=== PATIENT | female | born 1935 | race Caucasian/White ===

== ENCOUNTER 2019-02-10 14:37 | Inpatient (IN) | payer MEDICARE ==
--- OUTSIDE RECORDS SUMMARY | 2019-02-10 16:48 | XMS REPORT | Continuity of Care Document ---
:1935 External Reference #:[id number] Author Name Elda Carranza Care Team Providers Name Role Phone Herson Wade D.O. Primary Care Physician Unavailable Payers Date Identification Numbers Payment Provider Subscriber Policy Number: [id number] Medicare Blue Ppo Sabrina Smith Group Number: [id number] [address] [address] PayID: [id number] SAMUEL Pardo [id number] Advance Directives Description No Information Available Problems Date Description Provider Status Onset: 07/21/2016 2-part displaced fracture of surgical neck Tato Norman MD Active of left humerus, subsequent encounter for fracture with routine healing Family History Date Family Member(s) Observation Comments General No Current Problems Social History Type Date Description Comments Sex Unknown Lives With Occupation Retired ETOH Use Denies alcohol use Tobacco Use Start: Unknown Patient has never smoked Smoking Status Reviewed: 01/18/19 Patient has never smoked Exercise Type/Frequency active Allergies, Adverse Reactions, Alerts Date Description Reaction Status Severity Comments 02/18/2016 Penicillin Active 02/18/2016 Cephalosporins Active 02/18/2016 Codeine Active 01/25/2017 Myrbetriq nightmares Active Medications Medication Date Status Form Strength Qnty SIG Indications Ordering Provider Shingrix 01/18 Active Suspension 50mcg/0.5 2unit 0.5 Rec ML s milliliters Alise, intramuscula M.D. r times 1, followed by 0.5ml intramuscula r 2-6 months after dose #1 Methotrexate 11/08 Active Solution 50mg/2ML 12uni inject 0.3 ts milliliters Alise, subcutaneous M.D. ly once weekly on tuesdays Folic Acid 11/08 Active Tablets 1mg 90tab take one s capsule/tabl Alise, et daily by M.D. mouth BD 1ML 11/08 Active Misc 27G X 12uni use for Aurelio Tuberculin /10/26" 1 ML ts weekly Alise, Syringe/Safetyg injection of M.D. lide TB Needle methotrexate 27GX1/2" Enbrel 12/10 Active Solution 50mg/ml 11.76 Inject 50 MG M05.79 Aurelio Sureclick 2017 Auto-Inject units Under The Alise, Skin Every M.D. Week Levothyroxine Active Tablets 75mcg 1 by mouth Unknown Sodium /0000 every day Multi For Her Active Tablets 1 tab daily Unknown / Prilosec Active Capsules DR 20mg 1 by mouth Unknown / every day Zofran Active Tablets 4mg 1 tab by Unknown /0000 mouth every 6 hours as needed nausea Pravachol Active Tablets 40mg 1 tablet by Unknown /0000 mouth every night at bedtime Tramadol HCL Active Tablets 50mg 1-2 tablets Unknown /0000 every 6 hours as needed (200 mg in the a.m.) then two tabs prn Calcium 600 + D Active Tablets 600-200mg 1 by mouth Unknown /0000 -Unit twice a day Diclofenac Active Solution 1.5% 150ml apply to Aurelio Sodium / affected Alise, area every 4 M.D. hours daily as needed for pain Triamcinolone Active Ointment 0.5% apply to Unknown Acetonide / ostomy site and fistula as needed. Famciclovir Active Tablets 500mg 1 by mouth Unknown /0000 twice a day Lomotil Active Tablets 2.5-0.025 take 1 Unknown /0000 mg tablet by mouth four times daily as needed maximum daily dose of 4 per day Belsomra Active Tablets 5mg [place], 0000 Herson Cohen D.O. Vesicare Active Tablets 10mg Unknown /0000 Pentoxifylline Active Tablets ER 400mg Unknown ER /0000 Vitamin E Active 1000Units Unknown /0000 Prednisone 11/08 Hx Tablets 2.5mg 180ta Take 3 bs Tablets By Alise, - Mouth Daily M.D. 11/08 For 3 Days Only as Needed For Flare Of Ra (Not Every Day) Prolia 07/19 Hx Solution 60mg/ml 60mg 60 mg sc M81.0 q6mon Alise, - M.D. 09/02 Prednisone 11/26 Hx Tablets 10mg 30tab take 1 day M79.7 s for 5 days Alise, - as needed M.D. 02/21 for flare of ra [place] 03/03 Hx Tablets 5-325mg 45tab 1-2 by mouth S42.222A s every 4 to 6 Yaseen, - hours as 11/26 needed pain Prednisone 02/20 Hx Tablets 10mg 30tab 20 mg on s 02/21, 10mg Yaseen, - on 02/22, then 11/26 resum normal dose on Friday 02/23 Clindamycin HCL 02/20 Hx Capsules 300mg 10cap 2 tabs PO s Qday x 5 Yaseen, - days MD 11/26 Percocet 02/19 Hx Tablets 5-325mg 60tab 1-2 by mouth s every 4 to 6 [place], - hours as M.D. 11/26 needed Fosamax Hx Tablets 70mg one tablet Unknown /0000 weekly - 07/30 Vitamin D Hx Tablets 1000Unit not taking Unknown /0000 as it is in - her Multi 11/23 vitamin Docusate Sodium Hx Capsules 250mg one capsule Unknown /0000 daily as - needed 11/23 Enbrel Hx Soln 25mg/0.5M 6.12m inject 25mg M05.79 Prefill L l sq once Alise, - Syringe weekly. (90 M.D. 12/10 day supply /2016 please) Folic Acid 00 Hx Tablets 1mg 1 by mouth Unknown /0000 every day - 06/01 Vicodin Hx Tablets 5-300mg take 1 by Unknown /0000 mouth every - 6 hours as 11/26 Methotrexate Hx Tablets 2.5mg 6 tbs by Unknown /0000 mouth every - week 11/26 Prednisone Hx Tablets 20mg 40mg daily Unknown /0000 - 04/29 Senna Lax Hx Tablets 8.6mg take 2 Unknown /0000 tablets by - mouth at 11/26 bedtime needed: max 4 tablets by mouth two times a day Prednisone Hx Tablets 2.5mg 180ta take 3 tabs Aurelio /0000 bs by mouth Alise, - every day M.D. 10/07 Tramadol HCL ER Hx Caps ER 200mg 1 capsule at Unknown /0000 24HR bedtime - 04/29 Imodium A-D Hx Capsules 2mg 1 capsule Unknown /0000 after each - loose bm 06/01 Loperamide HCL Hx Tablets take one Unknown /0000 capsule by - mouth every 11/23 6 hours needed Medications Administered in Office Medication Date Status Form Strength Qnty SIG Indications Ordering Provider Prolia Administered Injection Nurse Visit Injection, 018 RH Denosumab, 1MG Prolia Administered Injection Aurelio Injection, 018 Alise, Denosumab, 1MG M.D. Prolia Administered Injection Aurelio Injection, 017 Alise, Denosumab, 1MG M.D. Immunizations Description No Information Available Vital Signs Date Vital Result Comment 01/18/2019 9:32am Height 64 inches 5'4" Weight 111.00 lb Heart Rate 103 /min BP Systolic 126 mmHg BP Diastolic 80 mmHg Pain Level 5 O2 % BldC Oximetry 98 % BMI (Body Mass Index) 19.1 kg/m2 09/29/2018 10:06am Height 64 inches 5'4" Weight 124.44 lb Heart Rate 93 /min BP Systolic Sitting 126 mmHg BP Diastolic Sitting 82 mmHg Pain Level 5 O2 % BldC Oximetry 98 % BMI (Body Mass Index) 21.4 kg/m2 08/31/2018 10:48am Height 64 inches 5'4" Weight 124.00 lb Heart Rate 88 /min BP Systolic Recheck 126 mmHg BP Diastolic Recheck 84 mmHg Respiratory Rate 20 /min Body Temperature 98.9 F BMI (Body Mass Index) 21.3 kg/m2 05/24/2018 11:45am Height 64 inches 5'4" Weight 128.25 lb Heart Rate 77 /min BP Systolic Sitting 114 mmHg BP Diastolic Sitting 80 mmHg Pain Level 6 O2 % BldC Oximetry 92 % BMI (Body Mass Index) 22.0 kg/m2 02/21/2018 2:39pm Height 64 inches 5'4" Weight 133.00 lb Heart Rate 90 /min BP Systolic Sitting 104 mmHg BP Diastolic Sitting 70 mmHg Respiratory Rate 14 /min Pain Level 3 BMI (Body Mass Index) 22.8 kg/m2 11/23/2017 2:43pm Weight 121.00 lb Heart Rate 91 /min BP Systolic Sitting 146 mmHg BP Diastolic Sitting 92 mmHg Respiratory Rate 15 /min Pain Level 6 07/30/2017 10:29am Weight 133.25 lb Heart Rate 81 /min BP Systolic Sitting 150 mmHg BP Diastolic Sitting 98 mmHg O2 % BldC Oximetry 94 % 06/01/2017 4:24pm Height 60 inches 5'0" Weight 129.38 lb Heart Rate 80 /min BP Systolic Sitting 146 mmHg BP Diastolic Sitting 84 mmHg Respiratory Rate 14 /min Pain Level 5 BMI (Body Mass Index) 25.3 kg/m2 04/29/2017 9:01am Height 60 inches 5'0" Weight 130.25 lb Heart Rate 84 /min BP Systolic Sitting 150 mmHg BP Diastolic Sitting 84 mmHg Respiratory Rate 14 /min Pain Level 6 BMI (Body Mass Index) 25.4 kg/m2 01/25/2017 11:42am Height 60 inches 5'0" Heart Rate 96 /min BP Systolic Sitting 148 mmHg BP Diastolic Sitting 96 mmHg Respiratory Rate 16 /min Body Temperature 97.7 F 11/26/2016 9:58am Height 60 inches 5'0" Weight 113.12 lb Heart Rate 78 /min BP Systolic Sitting 138 mmHg BP Diastolic Sitting 80 mmHg Body Temperature 98.4 F O2 % BldC Oximetry 99 % BMI (Body Mass Index) 22.1 kg/m2 07/21/2016 10:10am Height 62.5 inches 5'2.50" Weight 103.00 lb Heart Rate 60 /min Respiratory Rate 16 /min Pain Level 0 BMI (Body Mass Index) 18.5 kg/m2 05/12/2016 11:53am Height 62.5 inches 5'2.50" Weight 103.00 lb Pain Level 0 BMI (Body Mass Index) 18.5 kg/m2 03/19/2016 12:20pm Height 62.5 inches 5'2.50" Weight 103.00 lb Pain Level 2 BMI (Body Mass Index) 18.5 kg/m2 03/03/2016 10:47am Height 62.5 inches 5'2.50" Weight 103.00 lb Body Temperature 98.4 F Pain Level 7 BMI (Body Mass Index) 18.5 kg/m2 02/18/2016 9:11am Height 62.5 inches 5'2.50" Weight 103.00 lb Heart Rate 68 /min BP Systolic Sitting 104 mmHg BP Diastolic Sitting 68 mmHg Respiratory Rate 18 /min Pain Level 9 BMI (Body Mass Index) 18.5 kg/m2 Results Description No Information Available Procedures Date Code Description Status 08/23/2018 48529 Admin Of Inj Completed 02/21/2018 10693 Admin Of Inj Completed 12/08/2017 08579 Endoscopy Upper GI Biopsy Completed 07/30/2017 41664 Admin Of Inj Completed 06/24/2017 [id number] Bone Mineral Density Test Completed 02/20/2016 21525 Open TX Proximal Humeral FX Incl Fixation When Completed Performed 02/20/2016 74304 Open TX Proximal Humeral FX Incl Fixation When Completed Performed Encounters Type Date Location Provider Dx Diagnosis Office Visit 09/29/2018 Rheumatology Akosua Knight Rheu arthritis w 10:00a Services Of Janelle Barry rheu factor mult site w/o org/sys involv M81.0 Age-related osteoporosis w/o current pathological fracture M79.7 Fibromyalgia Z79.899 Other fdc (current) drug therapy Office Visit 08/31/2018 E[facility] Graham87.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 rheu factor mult site w/o org/sys involv M81.0 Age-related osteoporosis w/o current pathological fracture Z79.899 Other intermediate accountant (current) drug therapy M79.7 Fibromyalgia Office Visit 02/21/2018 2:20p Rheumatology Nery Knight5Stephany Rheu arthritis [facility] Janelle Barry w rheu factor mult site w/o org/sys involv M81.0 Age-related osteoporosis w/o current pathological fracture Z79.899 Other fdc (current) drug therapy M79.7 Fibromyalgia Office Visit 11/23/2017 3:00p Rheumatology Aurelio Carrero M05.79 Rheu arthritis [facility] Jhonny w rheu factor mult site w/o org/sys involv Z79.899 Other fdc (current) drug therapy M81.0 Age-related osteoporosis w/o current pathological fracture M79.7 Fibromyalgia Office Visit 07/30/2017 10:20a Rheumatology Aurelio Z79.899 Other fdc Services Of Janelle Carrero M.D. (current) drug therapy M05.79 Rheu arthritis w rheu factor mult site w/o org/sys involv M81.0 Age-related osteoporosis w/o current pathological fracture Office Visit 06/01/2017 4:40p Rheumatology Aurelio Carrero M05.79 Rheu arthritis [facility] Jhonny w rheu factor mult site w/o org/sys involv Z79.899 Other fdc (current) drug therapy M81.0 Age-related osteoporosis w/o current pathological fracture M79.7 Fibromyalgia Office Visit 04/29/2017 9:00a Rheumatology Aurelio Carrero M05.79 Rheu arthritis [facility] Jhonny w rheu factor mult site w/o org/sys involv Z79.899 Other fdc (current) drug therapy M81.0 Age-related osteoporosis w/o current pathological fracture M79.7 Fibromyalgia Office Visit 01/25/2017 11:20a Rheumatology Aurelio Carrero M05.79 Rheu arthritis [facility] Jhonny w rheu factor mult site w/o org/sys involv Z79.899 Other intermediate accountant (current) drug therapy M81.0 Age-related osteoporosis w/o current pathological fracture M79.7 Fibromyalgia Office Visit 11/26/2016 10:00a Rheumatology Aurelio Carrero M05.79 Rheu arthritis [facility] Jhonny w rheu factor mult site w/o org/sys involv Z79.899 Other fdc (current) drug therapy M81.0 Age-related osteoporosis w/o current pathological fracture M79.7 Fibromyalgia Office Visit 07/21/2016 Orthopedic Tato Norman, S42.222D 2-part disp fx of 10:00a Services Of Frankie JAMES surg nk of holly zapata, 7thD Office Visit 02/20/2016 [facility] E03.9 Hypothyroidism, 11:05a [facility] [place], unspecified [facility] E78.5 Hyperlipidemia, unspecified M06.9 Rheumatoid arthritis, unspecified S42.295A Oth nondisp fx of upper end of left humerus, init Office Visit 02/18/2016 8:30a Orthopedic Tato Norman, S42.222S 2-part disp fx Services Of of surgical Frankie neck of left humerus, sequela S42.222A 2-part disp fx of surgical neck of left humerus, init Plan of Treatment Future Appointment(s):04/20/2019 9:40 am - Aurelio Carrero M.D. at [facility]01/18/2019 - Aurelio Carrero M.D.M05.79 Rheumatoid arthritis with rheumatoid factor of multiple siteM81.0 Age-related osteoporosis without current pathological wwylmgN64.7 EacvzapvzvybH31.899 Other fdc (current) drug therapyFollow up:Follow up in 2 or 3 months or sooner if needed
[2019-02-10] MEDS ORDERED: Ondansetron INJ* 2 MG/ML VIAL IV PRN (17:20)
[2019-02-10] MEDS ORDERED: Al Hydrox/Mg Hydrox/Simet LIQ* 30 ML UDC PO PRN (17:28)
[2019-02-10] MEDS ORDERED: Lactated Ringers 1000 ML Bag* 1,000 ML IV SCH (18:00)
[2019-02-10 18:33] LABS: Albumin/Globulin Ratio 0.7 (1-3); BUN/Creatinine Ratio 24.4 (8-20); C Reactive Protein 9.32 mg/L (<8.01); Calcium 8.6 mg/dL (8.6-10.3); EGFR African American 26.2 (>60); EGFR Non-African American 21.7 (>60); Globulin 4.3 g/dL (2-4); Potassium 3.7 mmol/L (3.5-5.0); Total Bilirubin 0.4 mg/dL (0.2-1.0); Total Protein 7.3 g/dL (6.4-8.9)
[2019-02-10 19:34] LABS: Urine Creatinine Concentration 53.61 mg/dL
--- NOTE | 2019-02-10 19:51 | PN ---
Hospitalist Progress Note Date of Service: 02/10/19 HOSPITALIST ADDENDUM Case had been discussed earlier today with Corina Laurent SENIOR SAFETY MANAGEMENT CONSULTANT at [facility]. Also reviewed and d/w Saran ERICKSON. Mrs Allen is an 83 yo F with PMH of RA, bowel perf s/p resection and ostomy, CKD, hypothyroidism, who sustained a fall 1 month ago and was found to have rib fractures, hemopneumothorax; admitted to [facility] for treatment, and later on discharged to [facility] for rehab. Left rehab on 02/08, with improvement; but returned to [place] on 02/09 with altered MS. Transferred to our Facility for Neurology evaluation as there was concern for left facial droop/possible CVA. Also noted to have progressive worsening of her renal function since fall, with Cr up to 2.7. Agree with current management.
--- NOTE | 2019-02-10 19:57 | HP ---
CC: Dr. Herson Wade; Dr. Sofiya Mccoy * ADMISSION HISTORY AND PHYSICAL: DATE OF ADMISSION: 02/10/19 PRIMARY CARE PROVIDER: Dr. Herson Wade. MY ATTENDING WHILE IN THE HOSPITAL: Dr. Teetee Wilson.* (DICTATED BY GEORGINA RETANA) CONSULTING NEUROLOGIST: Dr. Sofiya Mccoy. CHIEF COMPLAINT: Altered mental status x1 month, worsening renal function. HISTORY OF PRESENT ILLNESS: Ms. Vasquez is an 83-year-old with past medical history significant for rheumatoid arthritis; bowel perforation, status post resection and colostomy; chronic kidney disease; frequent UTIs; and hypothyroidism, who is a direct admission from [facility] after a complicated course. The patient 1 month ago had what was believed to be a mechanical fall, but was unwitnessed by her . The patient had been in her normal state of health before that. The patient at that time was taken to the [place], was diagnosed with a hemopneumothorax and transferred to [facility] for a chest tube, which was completed with resolution of the hemopneumothorax. The patient was then transferred back to [facility] for rehab and then transferred home. The patient is not able give history and the patient's is a poor historian; however, it seems that during this time as well as during her stay at rehab that her kidney function was slowly worsening. It is unknown what her initial renal function was, but her creatinine at this point hit a high of 2.7. The patient has been having very poor oral intake and has been having worsening confusion over this time as well. The patient had a fluctuating mental course. After the patient was sent home from rehab 2 days ago, she began to have significant urinary frequency having to go to the bathroom every 30 minutes without any dysuria; however, the patient is a poor historian. The patient has been having intermittent burning abdominal pain, which was responsive to Pepto-Bismol. The patient has been having no complications with her ostomy per her . The patient presented to [facility] on 02/10/19 in the floor supervisor for evaluation of urinary frequency and altered mental status and was admitted to the hospital for UTI. The patient while she was in the hospital continued to be altered and there was at some point a question of a facial droop and the patient was transferred to [facility] for neurologic evaluation and for possible stroke. At [facility], the patient was examined. The patient has significant twitching. The patient has tangential speech and is unable to answer questions reliably or consistently. The patient complains of abdominal pain, but cannot describe it further. The patient will be admitted in the hospital for altered mental status, worsening kidney function, and treatment of possible UTI. 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 PAST SURGICAL HISTORY: The patient had a partial colectomy with ileostomy and a recent chest tube for hemopneumothorax. MEDICATIONS: The patient's medications from records at [facility] include: 1. Synthroid 75 mcg p.o. daily. 2. Pravastatin 40 mg p.o. daily. 3. Tramadol 50 mg p.o. q.12 hours as needed. 4. Prednisone 2.5 mg p.o. daily. 5. Famvir 500 mg p.o. q.8 hours. 6. Etanercept 25 mg subcutaneous weekly. 7. Gabapentin 100 mg p.o. t.i.d. ALLERGIES: The patient has allergies to PENICILLINS, BACTRIM, CIPROFLOXACIN, CODEINE, MIRABEGRON. FAMILY HISTORY: Unknown. The patient is ancestry, but her knows nothing about her family history otherwise. The patient is unable to supply anything. SOCIAL HISTORY: The patient never smoked. The patient drinks occasional alcohol. The patient is not an alcoholic. The patient denies illicit drug use. 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 The patient's surrogate decision maker will be primarily her daughter, Lynda Agarwal, and secondarily her . REVIEW OF SYSTEMS: Unable to be obtained, reviewed with and negative except as above in the HPI. PHYSICAL EXAMINATION GENERAL: The patient is an 83-year-old female, who appears stated age and sitting comfortably in bed, in no acute distress. VITAL SIGNS: At the time of evaluation, temperature 97.6, pulse rate 90, respiratory rate 20, oxygen saturation 100% on room air, blood pressure 145/78. HEENT: Head: Normocephalic, atraumatic. Sclerae anicteric. No conjunctival injection. Nasal mucosa moist. Oral mucosa moist. No pharyngeal erythema, discharge, or exudate. NECK: Supple, nontender. No lymphadenopathy. No carotid bruits auscultated. No JVD. RESPIRATORY: Clear to auscultation bilaterally. No wheezes, rales, or rhonchi. Good air exchange bilaterally. CARDIAC: Regular rate and rhythm. No clicks, murmurs, gallops, or rubs. Pulses are 2+ in the bilateral dorsalis pedis, posterior tibialis, and radial areas. ABDOMEN: Soft. Tender to palpation in the epigastric and suprapubic areas. Colostomy in place clean and draining small amount of brown stool. Bowel sounds present and normoactive in all 4 quadrants. No hepatosplenomegaly. No abdominal bruits auscultated. No hepatojugular reflux. GENITOURINARY: No CVA tenderness. NEURO: Cranial nerves II through XII intact. No focal deficits. Drowsy. Oriented only to self. Unable to further cooperate in exam. Reflexes unremarkable. PSYCHIATRIC: Altered, but otherwise pleasant and cooperative. SKIN: Clean, dry, and intact. No rash. DIAGNOSTIC STUDIES/LAB DATA: Laboratory data is pending at this time. Urinalysis from [facility] shows 1+ leukocyte esterase, trace bacteria, cloudy, otherwise unremarkable. Studies: Chest x-ray from [facility] shows minimal right-sided atelectasis, healing rib fractures, resolution of hemopneumothorax. ASSESSMENT AND PLAN/IMPRESSION: Ms. Vasquez is an 83-year-old female with past medical history significant for rheumatoid arthritis, frequent urinary tract infections, fall with hemopneumothorax and worsening chronic kidney disease with altered mental status, who was directly admitted to the hospital from [facility] for concern for altered mental status and possible facial droop with concern for cerebrovascular accident. 1. Altered mental status. The patient at this time does not have any focal neurologic deficits. The patient has what appears to be some possible myoclonus and altered mental status. The patient has no other focal deficits; however, the patient is unreliable and given history of possible facial droop, we will get an MRI, transthoracic echocardiogram. The patient received aspirin and Plavix this morning and these will be continued. The patient will be seen in consultation by Dr. Sofiya Mccoy of Neurology. The patient's altered mental status seems most likely at this point to be related to toxic metabolic encephalopathy with accumulation of metabolites from the patient's renally cleared medications including tramadol and gabapentin. These will be held at this time and other medications that provoke delirium will be avoided. The patient received Levaquin this morning and this will not be continued. The patient's metabolic encephalopathy could also be related to urinary tract infection, though the chronicity of this is not clearly borne out. We will continue the patient on aztreonam and follow up on culture data from [place] and this may be considered to be stopped if culture comes back negative. The patient will be continued on Lipitor and have risk stratification with a hemoglobin A1c and a lipid profile. 2. Frequent urinary tract infections, possible urinary tract infection at this time. Continue aztreonam. The patient has urinary frequency with no other urinary symptoms. 3. Kidney disease, acute on chronic kidney failure. It is unknown what the patient's baseline creatinine is; however, her current creatinine from [place] is 2.7 with a normal BUN to creatinine ratio. The patient per report previously looked dehydrated; however, she does not look dehydrated on exam at this time. The patient will be trialed with 2 L of lactated Ringer's at 100 mL an hour and we will have a reassessment of her creatinine now and then. The patient has an elevated globulin in her serum, which may be related to her rheumatoid arthritis, but may also be related to myeloma or other immunoglobulin disorder. SPEP and UPEP have been sent. Given the patient's recent history of rib fractures and worsening renal function, myeloma is definitely in the differential as is other malignancy such as lymphoma, which she is predisposed to by immunosuppression. The patient will have a FENa calculated, though it is unlikely to be reliable given the patient's chronic kidney disease. The patient will have a CT scan of her abdomen to assess her kidneys for any obstruction or hydronephrosis. 4. Rheumatoid arthritis. The patient's immunosuppressive medications are on hold at this time. Continue the patient's prednisone at low dose. 5. Abdominal pain. The patient's abdominal pain sounds most consistent with reflux, which the patient has a history of. We will prescribe Maalox and continue her PPI. This will also be further elucidated by CT scan of her abdomen for any abdominal pathology. 6. Hypothyroidism. Continue Synthroid. Check a TSH. 7. Code status: The patient is DNR. 8. FEN: The patient will have a heart-healthy diet without caffeine and fluids as above. 9. Disposition: The patient will be admitted inpatient with estimated length of stay greater than 2 midnights. TIME SPENT: Approximately 60 minutes was spent on the admission of this patient , 30 of which was spent [id number] with the patient obtaining history and physical and discussing treatment plan. This plan was discussed with my attending, Dr. Teteee Wilson, and she is in agreement. GEORGINA RETANA [id number]/[facility] #: [id number] [employer]
[2019-02-10] MEDS: Pantoprazole TAB * 40 MG TAB PO SCH (20:55)
[2019-02-10] MEDS: Acetaminophen TAB* 325 MG PO PRN (20:55)
[2019-02-10] MEDS: Aztreonam (*) 0.5 GM in NS 0.9% 50 ML* 50 ML IVPB SCH (20:57)
[2019-02-10] MEDS: Enoxaparin(*) 30 MG/0.3 ML SYR SUBCUT SCH (20:57)
--- NOTE | 2019-02-10 22:54 | PN ---
Hospitalist Progress Note Date of Service: 02/10/19 CT Abdomen and Pelvis read returned and showed concern for Pancreatitis, Small Bowel Obstruction, and Nephrolithiasis with hydronephrosis. Lipase and lactic acid ordered. Made Patient NPO. Patient is not having N/V. Urology contacted and will see in AM. Patient is stable and remains significantly altered. Continued unchanged abdominal pain.
[2019-02-10 23:48] LABS: BUN/Creatinine Ratio 24.5 (8-20); Calcium 8.4 mg/dL (8.6-10.3); EGFR African American 26.3 (>60); EGFR Non-African American 21.8 (>60); Potassium 3.5 mmol/L (3.5-5.0)
[2019-02-11] MEDS: Aztreonam (*) 0.5 GM in NS 0.9% 50 ML* 50 ML IVPB SCH ×2 (04:18→13:31)
[2019-02-11] MEDS: Levothyroxine TAB* 75 MCG TAB PO SCH (06:05)
[2019-02-11] MEDS ORDERED: Clopidogrel TAB* 75 MG PO SCH (09:00)
[2019-02-11 09:09] LABS: ABS Basophils 0 10^3/ul (0-0.2); ABS Eosinophils 0.2 10^3/ul (0-0.6); ABS Lymphocytes 1.3 10^3/ul (1.0-4.8); ABS Monocytes 0.9 10^3/ul (0-0.8); ABS Neutrophils 6.7 10^3/ul (1.5-7.7); ABS Nucleated RBC 0 10^3/ul; Hematocrit 29 % (33-41); Hemoglobin 9.3 g/dL (12.0-16.0); Lymphocyte % 13.9 %; Mean Corpuscular HGB Conc 32 g/dL (31-36); Mean Corpuscular Hemoglobin 29 pg (27-31); Mean Corpuscular Volume 91 fL (80-97); Mean Platelet Volume 8.4 fL (7.4-10.4); Nucleated Red Blood Cells % 0; Platelet Count 424 10^3/uL (150-450); Red Blood Count 3.17 10^6 /uL (3.70-4.87); Red Cell Distribution Width 19 % (10.5-15)
[2019-02-11 09:15] LABS: BUN/Creatinine Ratio 23.9 (8-20); Blood Urea Nitrogen 53 mg/dL (6-24); Calcium 8.8 mg/dL (8.6-10.3); Cholesterol 68 mg/dL; EGFR African American 25.5 (>60); EGFR Non-African American 21.1 (>60); Glucose 89 mg/dL (70-100); HDL Cholesterol 15.5 mg/dL; LDL Cholesterol 34 mg/dL; Potassium 3.7 mmol/L (3.5-5.0); Sodium 139 mmol/L (135-145); Triglycerides 91 mg/dL
[2019-02-11 09:16] LABS: Chloride 117 mmol/L (101-111)
[2019-02-11 09:18] LABS: Anion Gap 9 mmol/L (2-11); CO2 Carbon Dioxide 13 mmol/L (22-32)
[2019-02-11] MEDS ORDERED: NS 0.9% 1000 ML** 1,000 ML IV SCH (09:45)
--- NOTE | 2019-02-11 09:53 | PN ---
Subjective Interval History: Pt to go to uro OR today for stone removal. Afterwards will maintain on IVF for pancreatitis. Lynda Agarwal (daughter and surrogate decision maker): [phone] Mahendra (son): [phone] Pt still with confusion on exam - slow responses but not lethargic or somnolent , repetitive, continues to call her daughter her "sister." Denies pain. States that something is bothering her but unable to say what. Objective Active Medications: Acetaminophen (Tylenol Tab*) 650 mg PO Q6H PRN PRN Reason: FEVER/PAIN Last Admin: 02/10/19 20:55 Dose: 650 mg Al Hydrox/Mg Hydrox/Simethicone (Maalox Plus*) 30 ml PO Q4H PRN PRN Reason: INDIGESTION Aspirin (Aspirin Ec Tab*) 81 mg PO DAILY [facility] Last Admin: 02/11/19 13:23 Dose: Not Given Atorvastatin Calcium (Lipitor*) 40 mg PO 1700 [facility] Last Admin: 02/11/19 16:01 Dose: Not Given Enoxaparin Sodium (Lovenox(*)) 30 mg SUBCUT Q24H [facility] Last Admin: 02/10/19 20:57 Dose: 30 mg Lactated Ringer's (Lactated Ringers 1000 Ml Bag*) 1,000 mls @ 200 mls/hr IV PER RATE [facility] Last Admin: 02/11/19 14:28 Dose: 200 mls/hr Levothyroxine Sodium (Synthroid Tab*) 75 mcg PO DAILY@0600 [facility] Last Admin: 02/11/19 06:05 Dose: Not Given Ondansetron HCl (Zofran Inj*) 4 mg IV Q6H PRN PRN Reason: NAUSEA Pantoprazole Sodium (Protonix Tab*) 40 mg PO DAILY [facility] Last Admin: 02/11/19 13:38 Dose: Not Given Prednisone (Deltasone Tab*) 5 mg PO DAILY [facility] Vital Signs - 8 hr 02/11/19 02/11/19 02/11/19 03:49 07:28 07:30 Temperature 98.1 F 98.1 F Pulse Rate 90 83 Respiratory 16 16 16 Rate Blood Pressure 122/68 123/70 (mmHg) O2 Sat by Pulse 99 99 Oximetry Oxygen Devices in Use Now: None Appearance: eldery woman, not in acute distress but appears tired and mildly uncomfortable; confused; not lethargic or somnolent but slow responses to questions Eyes: No Scleral Icterus Ears/Nose/Mouth/Throat: Mucous Membranes Moist Respiratory: Clear to Auscultation Cardiovascular: RRR Abdominal: - - grimace when palpating epigastrum, no guarding or rebound, colostomy bag in place with small amount of brown stool Extremities: No Edema Skin: No Rash or Ulcers Result Diagrams: 02/11/19 08:46 02/11/19 08:23 Assess/Plan/Problems-Billing Assessment: 83W with rheumatoid arthritis on steroids and biologic, frequent UTIs, recent fall c/b hemothorax now s/p rehab stay, CKD, presents with AMS. She is a direct admit from [place] after presentation there for AMS with facial droop. Found here without facial droop but with anemia, metabolic acidosis (possibly from several liters of NS given at outside hospital), and acute on chronic renal insufficiency. MRI without acute findings, but with abdominal CT concerning for pancreatitis and obstructing renal stones. - Patient Problems (1) Acute on chronic renal failure Comment: Found with obstructing renal stones - now s/p procedure by urology . UCx at [place] negative. Concern for multiple myeloma given elevated globulin, multiple fractures, and impaired renal function. - monitor UOP, BMP - renally dose meds, avoid nephrotoxic medications - f/u SPEP/UPEP (2) Metabolic acidosis Comment: Hyperchloremic without an anion gap. Pt received significant IVF recusitation with normal saline at outside hospital - switched to LR. Could also have RTA from her known RA or suspected MM. - f/u urine studies - monitor BMP (3) Pancreatitis Comment: On CT, with lipase over 3,000. Unclear etiology. No e/o obstructing biliary stones. Not recently on known causitive medications (except for aspirin - no other signs of toxicity from this). Triglicerides 99. - IVF with LR at 200cc/hr - lower end of treatment range given kidney disease - feed as tolerated - monitor abdominal and volume exam, Is & Os - APAP for pain - denying currently (4) Altered mental status Comment: Likely metabolic encephalitis from multiple acute medical problems. MRI unrevealing. - Neuro consulted given facial droop at OSH, however given imaging, will CD Plavix started in ER - correcting underlying medical issues as above - continue to monitor mental status - redirect, minimize interruptions/interventions, keep near window (5) Rheumatoid arthritis Comment: holding home DMARD. - cont on home prednisone at a lower dose 5 mg (may have been on 7.5 before?)
[2019-02-11] MEDS ORDERED: Iohexol 180 (CONTRAST) 10 ML SDV IV ONE (10:20)
[2019-02-11] MEDS ORDERED: Ondansetron INJ* 2 MG/ML VIAL ONE (11:37)
[2019-02-11] MEDS ORDERED: Dexamethasone IV* 4 MG/ML 1 ML (4 MG) ONE (11:37)
[2019-02-11] MEDS: Aspirin EC TAB* 81 MG TAB.EC PO SCH (13:23)
[2019-02-11] MEDS: predniSONE TAB* 1 MG PO SCH ×2 (13:31→13:38)
[2019-02-11] MEDS: Pantoprazole TAB * 40 MG TAB PO SCH ×2 (13:31→13:38)
[2019-02-11] MEDS: Lactated Ringers 1000 ML Bag* 1,000 ML IV SCH ×2 (14:28→20:07)
[2019-02-11] MEDS: Atorvastatin* 40 MG TAB PO SCH (16:01)
--- NOTE | 2019-02-11 16:39 | OP ---
OPERATIVE REPORT: DATE OF OPERATION: 02/11/19 DATE OF : 35 SURGEON: Naeem Krishnamurthy MD ANESTHESIOLOGIST: Dr. Claus Knight. ANESTHESIA: General. PRE-OP DIAGNOSES: 1. Right hydronephrosis. 2. Right renal calculi. 3. Multiple (6) distal right ureteral calculi (6-8 mm each) POST-OP DIAGNOSES: Same OPERATIVE PROCEDURE: 1. Cystoscopy. 2. Right ureteroscopy, laser lithotripsy of distal right ureteral calculi. 3. Right retrograde pyelography and placement of right ureteral stent (7-Romanian ). INDICATION FOR PROCEDURE: Ms. Allen is an 83-year-old white female who was transferred from [facility] last night with confusion and decreased renal function with a creatinine of 2.7. Non-contrast CT of the abdomen and pelvis showed a moderate right hydroureteronephrosis with a column of stones measuring 6 to 8 mm each located in the distal right ureter. There were also 2 non-obstructing right renal calculi in the calyces. Her renal function improved to 2.2 on hydration. There was no signs of sepsis or urinary tract infection. The patient is taken to the operating room on an urgent basis for drainage of the right kidney. PATHOLOGY: At cystoscopy, the bladder mucosa looked normal. There were no suspicious bladder lesions seen. There were no changes or cystitis noted. She had a single orifice on each side. Upon right ureteroscopy, there was a cluster of stones, each measuring 6 to 8 mm located in the distal ureter. The stones were light grayish in color and would be consistent with either uric acid calculi or calcium phosphate calculi. There was significant degree of edema of the ureteral mucosa adjacent to the stones. There was dilatation of the ureter proximal to the stones. Right retrograde pyelography showed moderate right hydroureteronephrosis. DESCRIPTION OF PROCEDURE: After successful general anesthesia, the patient was placed in the lithotomy position and was prepped and draped for a cystoscopy. Cystoscopy was performed. The bladder was inspected and the above findings were noted. A hybrid flexible tip guidewire was then introduced into the right orifice and successfully positioned in the area of the renal pelvis. An open ended catheter was fed on top of the guidewire and urine from the kidney was drained and it looked clear. With that finding, it was decided to proceed with ureteroscopy. A size 6.5 semirigid ureteroscope was introduced inside the bladder. A flexible tip basket was introduced through the port of the ureteroscope and its flexible tip was introduced into the right ureter alongside the guidewire. That allowed the atraumatic introduction of the ureteroscope inside the ureter. The finding of the ureteral calculi was noted. Using the 550 micron laser fiber, the stones were broken into multiple fragments and some of the fragments were extracted into the bladder. The smaller fragments stayed in the ureter. After a final ureteroscopy which showed no significant residual calculi and intact ureteral wall, the ureteroscope was removed. The cystoscope was introduced over the guidewire. Retrograde pyelography was performed. A size 7- Romanian stent was then placed with the proximal end coiling in the renal pelvis and the distal end coiling inside the bladder. A 16-Romanian Aranda catheter was placed. The patient tolerated the procedure well and left the operating room in good condition. The specimen was fragment of right ureteral calculus. The plan is to keep the stent in place for about 2 to 3 weeks. It will be removed in the office under local anesthesia and I expect the residual stone fragments to pass spontaneously. Considering the patient's age and her general medical condition and the fact that the right renal calculi are nonobstructing and asymptomatic, the plan is to just observe them. [id number]/[facility] #: [id number] [place]
[2019-02-11 17:17] LABS: Salicylate < 2.50 mg/dL (<30)
[2019-02-11 19:49] LABS: Urine Potassium Concentration 18.6 mmol/L
[2019-02-11] MEDS: Enoxaparin(*) 30 MG/0.3 ML SYR SUBCUT SCH (20:08)
[2019-02-11] MEDS: Acetaminophen TAB* 325 MG PO PRN (20:14)
--- NOTE | 2019-02-12 00:22 | CONS ---
CONSULTATION REPORT: ADDENDUM: MEDICATIONS: 1. Acetaminophen 650 mg p.o. q.6 hours p.r.n. fever or pain. 2. Ondansetron 4 mg IV q.6 hours p.r.n. nausea. 3. Maalox 30 mL p.o. q.4 hours p.r.n. indigestion. 4. Lovenox 30 mg subcutaneous q.24 hours. 5. Pantoprazole 40 mg p.o. every day. 6. Levothyroxine 75 mcg p.o. every day. 7. Aspirin 81 mg p.o. every day. 8. Ringer's lactate 1000 mL running at 200 mL an hour IV. 9. Lipitor 40 mg p.o. 1700. 10. Prednisone 5 mg p.o. every day. [id number]/[facility] #: [id number]
--- NOTE | 2019-02-12 00:22 | CONS ---
CONSULTATION REPORT: DATE OF CONSULT: 02/11/19 HISTORY OF PRESENT ILLNESS: Sabrina Dixon is an 83-year-old woman who was admitted with change in mental status with tangential speech, twitching, weakness all over, and a question of facial droop seen at [facility]. She has significant past medical history of rheumatoid arthritis, on immunosuppressant medication including prednisone and recently methotrexate and Enbrel, who has had difficulties with frequent urinary tract infections and at the end of December was admitted to [facility] after a fall where she suffered a right occipital hematoma, right rib fractures, hemopneumothorax, requiring chest tube. She was eventually discharged to [facility], and 2 days prior to admission had gone home for 2 days. She had decreased p.o. intake and increased confusion and increased urinary frequency was noted as well as intermittent abdominal pain. When she went back to [facility], she was admitted, however they questioned the facial droop, she was referred here to [facility]. For the possibility of stroke, she was started on aspirin and Plavix which had not been on her previous medication list. She was continued on atorvastatin ( previously on pravastatin). MRI of the brain did not reveal any acute stroke last night and there was small vessel ischemic changes in the subcortical region. Her CT of the abdomen, however, showed multiple findings including nephrolithiasis with right hydronephrosis, bilateral hernia with a possible partial obstruction, and invasive infiltrate in the right upper quadrant thought to possibly representing pancreatitis with other differential diagnosis listed. Please see the report for details. Her lipase was elevated at 3376. Her lactate was 0.9. Her creatinine went from 2.1 to 2.22. In review of [facility]'s note, her creatinine was as low as 1.7. Her magnesium was low and this has been seen in the past. Her globulin was elevated and SPEP and UPEP were ordered. The patient could not give further details of her past medical history. As gleaned from the chart, she has a history of rheumatoid arthritis and has been on immunosuppressant including prednisone, methotrexate, Enbrel as recent as her admission at the end of December to [facility]. She has had a recent admission to [facility] for right hemothorax requiring chest tube, rib fractures, and occipital hematoma. 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 There is a history of hypothyroidism, hyperlipidemia, GERD, shingles, frequent urinary tract infections, fibromyalgia, periosteal hernia. PAST SURGICAL HISTORY: Includes recent chest tube on the right, December 2018; appendectomy; cholecystectomy; exploratory laparotomy in 2015; lithotripsy 1993 ; laminectomy L4-5, L5-S1 2000; release of thumb contracture on the left in 1998 ; left total hip replacement; superficial keratectomy, left eye 1997; total abdominal hysterectomy; removal of tonsils and adenoids at a young age. ALLERGIES: Include PENICILLIN, BACTRIM, CIPROFLOXACIN, CODEINE, MIRABEGRON, AMPICILLIN, CEFAZOLIN, CEPHALOSPORINS. SOCIAL HISTORY: According to the chart, she does not smoke. She occasionally drinks alcohol. She is and the decision maker is her daughter, Lynda. The patient could not give the history. REVIEW OF SYSTEMS: She did not participate in review of systems and positive findings were incorporated into the HPI. PHYSICAL EXAM: On examination, her most recent blood pressure was 111/71, temperature 97.5 degrees Fahrenheit, pulse was 80, respiratory rate 20, oxygenation was 92%. She had a regular cardiac rhythm. Her lungs were clear to auscultation. She was sitting in her room having broth. There was no twitching noted. She remember that Dr. Roosevelt Wade was her doctor. She was not sure of the hospital she was at. She was unable to retain [place] or [facility] later on the visit. She was unable to give me much history about what happened recently. There were some tangental and confabulatory information. She had a hard time retaining that she had a Aranda catheter. She had pupils that were equal and symmetric. She had full extraocular movements with no nystagmus, full gonzales to confrontation. Her facial expression was symmetric. There was no dysarthria. She would not open her mouth and say "aa" or stick out her tongue for me. She had no pronator drift. She gave good strength in upper and lower extremities. Her reflexes were 2+ in the upper extremities in knees, 1+ at the ankles. Her toes are flexor to response. She denied any asymmetry to cold, light touch, or sharp. She had a Aranda in place. DIAGNOSTIC STUDIES/LAB DATA: CBC shows a white count of 9, hemoglobin and hematocrit are low at 9.3 and 29 with platelets of 424. Sedimentation rate was elevated at 64. Her initial blood gas showed pH of 7.23. Her CO2 was low at 35. Her HCO3 was low a 14.5 and oxygenation saturation when obtained yesterday was 54.7. Her metabolic panel show persistent low carbon dioxide, elevated chloride, elevated BUN and creatinine with an elevated BUN and creatinine ratio. Her calcium was low at 8.4, normalized today; magnesium low at 10. Lipase elevated at 3376. Her total cholesterol was 68, LDL was 34, HDL 15.5, and triglycerides 91. MRI of the brain showed no evidence of new stroke and the film was reviewed directly. CT of the abdomen was as mentioned above, please see report for details. She went for surgery this morning for stent placement. IMPRESSION: An 83-year-old woman sent to our hospital from [place] with question of stroke with a facial droop who was found to have confusion with twitching, tangential responses in the setting of a complex medical course. In regards to stroke, there is no stroke on MRI. I stopped the Plavix now, and I would stop the aspirin if there is no medical reasons to continue it. I have not seeing it on the medication list from [facility]. She has just recently had surgery for her kidney stones. Her twitching has resolved. Question about uremia contributing. She is still tangental and hard to retain information. I expect cause of cognitive decline is multifactorial. She was on medications that could cause sedation in the setting of renal decline. Her tramadol and gabapentin had been held. She was also given some Levaquin which can cause confusion and this has been held. I suspect there are multifactorial reasons for decline. In addition to medications and worsening renal function, there was dehydration. She also has infiltration of the pancreas with elevated lipase. I would stay very vigilant for infection in the setting of recent immunosuppressant. She is still on low dose prednisone. She has recently been on methotrexate and Enbrel. Thank you for involving me in this complex case. Our team will continue to follow with you. At this point , there is no evidence of stroke. Her baseline cognitive function is not clear, however, she had clearly better function per notes from [facility]. TIME SPENT: Over an hour and a half was spent in the patient's care. [id number]/[facility] [place] [place] #: [id number] [facility]ENTER[facility]
[2019-02-12] MEDS: Lactated Ringers 1000 ML Bag* 1,000 ML IV SCH ×4 (01:08→21:02)
[2019-02-12] MEDS: Levothyroxine TAB* 75 MCG TAB PO SCH (06:16)
[2019-02-12] MEDS: Aspirin EC TAB* 81 MG TAB.EC PO SCH (07:58)
[2019-02-12] MEDS: Pantoprazole TAB * 40 MG TAB PO SCH (07:58)
[2019-02-12] MEDS: predniSONE TAB* 5 MG PO SCH (07:58)
[2019-02-12 11:25] LABS: ABS Basophils 0 10^3/ul (0-0.2); ABS Eosinophils 0 10^3/ul (0-0.6); ABS Lymphocytes 1.2 10^3/ul (1.0-4.8); ABS Monocytes 0.8 10^3/ul (0-0.8); ABS Neutrophils 7.7 10^3/ul (1.5-7.7); ABS Nucleated RBC 0 10^3/ul; Eosinophil % 0.1 %; Hematocrit 23 % (33-41); Hemoglobin 7.6 g/dL (12.0-16.0); Lymphocyte % 12.1 %; Mean Corpuscular HGB Conc 33 g/dL (31-36); Mean Corpuscular Hemoglobin 29 pg (27-31); Mean Corpuscular Volume 89 fL (80-97); Mean Platelet Volume 8.9 fL (7.4-10.4); Nucleated Red Blood Cells % 0; Platelet Count 366 10^3/uL (150-450); Red Blood Count 2.61 10^6 /uL (3.70-4.87); Red Cell Distribution Width 19 % (10.5-15); White Blood Count 9.8 10^3/uL (3.5-10.8)
[2019-02-12 12:10] LABS: Albumin 2.5 g/dL (3.2-5.2); Albumin/Globulin Ratio 0.8 (1-3); BUN/Creatinine Ratio 22.1 (8-20); Calcium 7.8 mg/dL (8.6-10.3); EGFR African American 32.3 (>60); EGFR Non-African American 26.7 (>60); Globulin 3.2 g/dL (2-4); Phosphorus 3.1 mg/dL (2.5-5.0); Potassium 3.4 mmol/L (3.5-5.0); Total Bilirubin 0.4 mg/dL (0.2-1.0); Total Protein 5.7 g/dL (6.4-8.9)
[2019-02-12 13:15] LABS: Magnesium 0.9 mg/dL (1.9-2.7)
[2019-02-12] MEDS ORDERED: Magnesium Sulf 4 GM/100 ML IV* 4,000 MG/100 ML BAG IVPB ONE (13:20)
[2019-02-12] MEDS: Atorvastatin* 40 MG TAB PO SCH (16:14)
--- NOTE | 2019-02-12 16:25 | PN ---
Progress Note - Progress Note Date of Service: 02/12/19 Note: cc: "i needed to walk" HPI: 83-year-old woman admitted Jaime night with change in mental status, twitching in setting of concern of facial droop, worsening renal failure on multiple medications, right hydronephrosis with multiple stones, elevated lipase with findings of infiltration of pancreas, possible partial bowel obstruction, hypomagnesium who had stent placed in her ureter yesterday. This occurs in the setting of chronic immunosuppression, history of intestinal rupture with ostomy, recent hemopneumothorax. Improvement in mental status was noted yesterday evening. She is feeling better today. She had some abdominal pain in the setting of eating a bite of hamburger today, per patient report. She walked with help. Family wanted to make sure we were also aware of her history of diverticulitis. Medications: Acetaminophen (Tylenol Tab*) 650 mg PO Q6H PRN PRN Reason: FEVER/PAIN Last Admin: 02/11/19 20:14 Dose: 650 mg Al Hydrox/Mg Hydrox/Simethicone (Maalox Plus*) 30 ml PO Q4H PRN PRN Reason: INDIGESTION Aspirin (Aspirin Ec Tab*) 81 mg PO DAILY [facility] Last Admin: 02/12/19 07:58 Dose: 81 mg Atorvastatin Calcium (Lipitor*) 40 mg PO 1700 [facility] Last Admin: 02/11/19 16:01 Dose: Not Given Enoxaparin Sodium (Lovenox(*)) 30 mg SUBCUT Q24H [facility] Last Admin: 02/11/19 20:08 Dose: 30 mg Lactated Ringer's (Lactated Ringers 1000 Ml Bag*) 1,000 mls @ 200 mls/hr IV PER RATE [facility] Last Admin: 02/12/19 11:11 Dose: 200 mls/hr Magnesium Sulfate (Magnesium Sulf 4 Gm/100 Ml Iv*) 4,000 mg in 100 mls @ 33.333 mls/hr IVPB ONCE ONE Stop: 02/12/19 16:19 Last Admin: 02/12/19 13:55 Dose: 33.333 mls/hr Levothyroxine Sodium (Synthroid Tab*) 75 mcg PO DAILY@0600 [facility] Last Admin: 02/12/19 06:16 Dose: 75 mcg Ondansetron HCl (Zofran Inj*) 4 mg IV Q6H PRN PRN Reason: NAUSEA Pantoprazole Sodium (Protonix Tab*) 40 mg PO DAILY [facility] Last Admin: 02/12/19 07:58 Dose: 40 mg Prednisone (Deltasone Tab*) 5 mg PO DAILY [facility] Last Admin: 02/12/19 07:58 Dose: 5 mg Vital Signs 02/11/19 02/11/19 02/11/19 17:01 19:33 20:00 Temperature 97.5 F 98.0 F Pulse Rate 80 Respiratory 20 18 18 Rate Blood Pressure 111/71 122/73 (mmHg) O2 Sat by Pulse 92 97 Oximetry 02/11/19 02/12/19 02/12/19 23:42 03:06 07:37 Temperature 97.4 F 97.9 F 98.3 F Pulse Rate 96 95 96 Respiratory 18 18 17 Rate Blood Pressure 125/74 115/74 124/77 (mmHg) O2 Sat by Pulse 100 98 100 Oximetry 02/12/19 02/12/19 02/12/19 08:00 14:33 15:21 Temperature 98.1 F 99.1 F Pulse Rate 84 86 Respiratory 16 16 16 Rate Blood Pressure 135/70 130/67 (mmHg) O2 Sat by Pulse 97 100 Oximetry There was a regular cardiac rhythm, lungs were clear to ausculatation, bowel sounds were present, abdomen was "full" to palpation. She was aware she was [place] [facility] was able to name January and with one hint, There were full gonzales to consultation, facial expression was symmetric, there was no dysarthria. She had no pronator drift. She had full strength in her arms and legs with no evidence of dysmetria. Sensation was symmetric between arms and legs. Laboratory Results - last 24 hr 02/11/19 02/11/19 02/11/19 08:23 08:30 18:20 WBC RBC Hgb Hct MCV MCH MCHC RDW Plt Count MPV Neut % (Auto) Lymph % (Auto) [place] % (Auto) Eos % (Auto) Baso % (Auto) Absolute Neuts (auto) Absolute Lymphs (auto) Absolute Monos (auto) Absolute Eos (auto) Absolute Basos (auto) Absolute Nucleated RBC Nucleated RBC % Sodium 139 Potassium 3.7 Chloride 117 H Carbon Dioxide 13 L* Anion Gap 9 BUN 53 H Creatinine 2.22 H Est GFR ( Amer) 25.5 Est GFR (Non-Af Amer) 21.1 BUN/Creatinine Ratio 23.9 H Glucose 89 Hemoglobin A1c 5.8 H Calcium 8.8 Phosphorus Magnesium 1.0 L Total Bilirubin AST ALT Alkaline Phosphatase Total Protein Albumin Globulin Albumin/Globulin Ratio Triglycerides 91 Cholesterol 68 LDL Cholesterol 34 HDL Cholesterol 15.5 Amylase Lipase Urine pH U Sodium Concentration 103 Urine Potassium 18.6 Ur Chloride Concentrat 107 Salicylates < 2.50 02/11/19 02/12/19 02/12/19 18:20 10:49 10:49 WBC 9.8 RBC 2.61 L Hgb 7.6 L Hct 23 L MCV 89 MCH 29 MCHC 33 RDW 19 H Plt Count 366 MPV 8.9 Neut % (Auto) 79.1 Lymph % (Auto) 12.1 [place] % (Auto) 8.4 Eos % (Auto) 0.1 Baso % (Auto) 0.3 Absolute Neuts (auto) 7.7 Absolute Lymphs (auto) 1.2 Absolute Monos (auto) 0.8 Absolute Eos (auto) 0 Absolute Basos (auto) 0 Absolute Nucleated RBC 0 Nucleated RBC % 0 Sodium 138 Potassium 3.4 L Chloride 115 H Carbon Dioxide 15 L Anion Gap 8 BUN 40 H Creatinine 1.81 H Est GFR ( Amer) 32.3 Est GFR (Non-Af Amer) 26.7 BUN/Creatinine Ratio 22.1 H Glucose 83 Hemoglobin A1c Calcium 7.8 L Phosphorus 3.1 Magnesium 0.9 L* Total Bilirubin 0.40 AST 15 ALT 8 Alkaline Phosphatase 82 Total Protein 5.7 L Albumin 2.5 L Globulin 3.2 Albumin/Globulin Ratio 0.8 L Triglycerides Cholesterol LDL Cholesterol HDL Cholesterol Amylase 321 H Lipase 363 H Urine pH 7.0 U Sodium Concentration Urine Potassium Ur Chloride Concentrat Salicylates Impression: 83-year-old woman admitted Jaime night with change in mental status, twitching in setting of concern of facial droop, worsening renal failure on multiple medications, right hydronephrosis with multiple stones, elevated lipase with findings of infiltration of pancreas, possible partial bowel obstruction, hypomagnesium who had stent placed in her ureter yesterday. This occurs in the setting of chronic immunosuppression, history of intestinal rupture with ostomy , recent hemopneumothorax. She is markedly improved today. Education was given to family regarding the multiple reasons why mental status could have been affected in the setting of worsening renal failure, multiple medications, hydronephrosis and immunosupression. Magnesium supplementation is being provided. No stroke was noted. At this point, I will sign off care (as discussed with family and covering hospitalist). Please call if further neurologic input is needed. Also spoke to Dr. Tristian Maciel regarding concerns of pancreatitis and current diet ordered, and reaction to hamburger. Also discussed history of diverticulitis to address family concerns, in setting of history of intestinal rupture, ostomy and possible partial obstruction on abdominal CT. Her lipase is improving. Dr. Maciel will further address these issues.
[2019-02-12] MEDS ORDERED: Potassium Chlor TAB* 20 MEQ TAB.ER PO STA (16:54)
--- NOTE | 2019-02-12 17:12 | PN ---
Subjective Date of Service: 02/12/19 Interval History: Pt seen and examined. Meds and labs reviewed. CC: N/A ROS: Denied MCCLENDON/dizziness, F/C, N/V, CP, SOB, increased cough, sputum production , abd pain, diarrhea, constipation, dysuria, myalgias, arthralgias, throat pain , and new skin lesions. The rest of the 14 point ROS are unremarkable. PHYSICAL EXAM: GEN APPEARANCE: Awake, not in acute distress HEENT: NC/AT, PERRLA, moist oral mucosa, (-) throat erythema NECK: Soft, supple, (-) cervical LAD, (-)JVD HEART: S1S2 WNL, RRR, No MRG CHEST: CTA, BL, GAE, No W/R/R ABD: Soft, ND/NT, NABS 4x Q (+)colostomy EXT: No C/C/E SKIN: Warm to touch PSYCH: No active psychosis, hallucinations, depression, SI/HI Objective Active Medications: Acetaminophen (Tylenol Tab*) 650 mg PO Q6H PRN PRN Reason: FEVER/PAIN Last Admin: 02/11/19 20:14 Dose: 650 mg Al Hydrox/Mg Hydrox/Simethicone (Maalox Plus*) 30 ml PO Q4H PRN PRN Reason: INDIGESTION Atorvastatin Calcium (Lipitor*) 40 mg PO 1700 [facility] Last Admin: 02/12/19 16:14 Dose: 40 mg Enoxaparin Sodium (Lovenox(*)) 30 mg SUBCUT Q24H [facility] Last Admin: 02/11/19 20:08 Dose: 30 mg Lactated Ringer's (Lactated Ringers 1000 Ml Bag*) 1,000 mls @ 200 mls/hr IV PER RATE [facility] Last Admin: 02/12/19 11:11 Dose: 200 mls/hr Levothyroxine Sodium (Synthroid Tab*) 75 mcg PO DAILY@0600 [facility] Last Admin: 02/12/19 06:16 Dose: 75 mcg Ondansetron HCl (Zofran Inj*) 4 mg IV Q6H PRN PRN Reason: NAUSEA Pantoprazole Sodium (Protonix Tab*) 40 mg PO DAILY [facility] Last Admin: 02/12/19 07:58 Dose: 40 mg Prednisone (Deltasone Tab*) 5 mg PO DAILY [facility] Last Admin: 02/12/19 07:58 Dose: 5 mg Vital Signs - 8 hr 02/12/19 02/12/19 14:33 15:21 Temperature 98.1 F 99.1 F Pulse Rate 84 86 Respiratory 16 16 Rate Blood Pressure 135/70 130/67 (mmHg) O2 Sat by Pulse 97 100 Oximetry Oxygen Devices in Use Now: None Result Diagrams: 02/12/19 10:49 02/12/19 10:49 Assess/Plan/Problems-Billing Assessment: 83W with rheumatoid arthritis on steroids and biologic, frequent UTIs, recent fall c/b hemothorax now s/p rehab stay, CKD, presents with AMS. She is a direct admit from [place] after presentation there for AMS with facial droop. Found here without facial droop but with anemia, metabolic acidosis (possibly from several liters of NS given at outside hospital), and acute on chronic renal insufficiency. MRI without acute findings, but with abdominal CT concerning for pancreatitis and obstructing renal stones. - Patient Problems (1) Acute on chronic renal failure Current Visit: Yes Status: Acute Code(s): N17.9 - ACUTE KIDNEY FAILURE, UNSPECIFIED; N18.9 - CHRONIC KIDNEY DISEASE, UNSPECIFIED SNOMED Code(s): 370138518 Comment: - Found with obstructing renal stones, Right causing R. hydronephrosis S/P Cystoscopy w/righ ureteroscopy, laser lithotripsy of distal R. ureteral calculi and R. retrograde pyelography and placement of R. ureteral stent, POD #1 (02/11) -Continue LR -UCx at [place] negative -Concern for multiple myeloma given elevated globulin, multiple fractures, and impaired renal function. - monitor UOP, BMP - renally dose meds, avoid nephrotoxic medications - f/u SPEP/UPEP (2) Anemia Current Visit: Yes Status: Acute Code(s): D64.9 - ANEMIA, UNSPECIFIED SNOMED Code(s): 675052980 Comment: -Will repeat CBC and if <8 consistently, transfuse w/at least 1 unit PRBC, appropriately typed and screened (3) Metabolic acidosis Current Visit: Yes Status: Acute Code(s): E87.2 - ACIDOSIS SNOMED Code(s) : 43789078 Comment: -Hyperchloremic without an anion gap. Pt received significant IVF recusitation with normal saline at outside hospital - switched to LR. -Improved -UAG (+) 14.6; RTA type I and IV possible -Continue LR (4) Pancreatitis Current Visit: Yes Status: Acute Code(s): K85.90 - ACUTE PANCREATITIS WITHOUT NECROSIS OR INFECTION, UNSP SNOMED Code(s): 48957896 Comment: -On CT, with lipase over 3,000. Unclear etiology. No e/o obstructing biliary stones. Not recently on known causitive medications (except for aspirin - no other signs of toxicity from this). Triglicerides 99. -Will check CA 19-9; Consider GI consult in AM -Improved -Nauseated later in the day; change diet to low residue, low fat - monitor abdominal and volume exam, Is & Os - APAP for pain - denying currently (5) Altered mental status Current Visit: Yes Status: Acute Code(s): R41.82 - ALTERED MENTAL STATUS, UNSPECIFIED SNOMED Code(s): 885769782 Comment: -Likely metabolic encephalopathy from multiple acute medical problems. MRI unrevealing. - Neuro consulted---D/C DAPT - correcting underlying medical issues as above - continue to monitor mental status - redirect, minimize interruptions/interventions, keep near window (6) Rheumatoid arthritis Current Visit: Yes Status: Acute Code(s): M06.9 - RHEUMATOID ARTHRITIS, UNSPECIFIED SNOMED Code(s): 21220255 Comment: holding home DMARD. - cont on home prednisone at a lower dose 5 mg (may have been on 7.5 before?) (7) DVT prophylaxis Current Visit: Yes Status: Acute Code(s): RBX9764 - SNOMED Code(s): 087172053 Comment: -Continue Lovenox SQ Status and Disposition: -For PT eval post op
[2019-02-12 19:07] LABS: ABS Basophils 0 10^3/ul (0-0.2); ABS Eosinophils 0 10^3/ul (0-0.6); ABS Lymphocytes 1.6 10^3/ul (1.0-4.8); ABS Monocytes 1.3 10^3/ul (0-0.8); ABS Neutrophils 7.3 10^3/ul (1.5-7.7); ABS Nucleated RBC 0 10^3/ul; Eosinophil % 0.4 %; Hematocrit 24 % (33-41); Lymphocyte % 15.7 %; Mean Corpuscular HGB Conc 33 g/dL (31-36); Mean Corpuscular Hemoglobin 29 pg (27-31); Mean Corpuscular Volume 89 fL (80-97); Mean Platelet Volume 8.3 fL (7.4-10.4); Nucleated Red Blood Cells % 0; Platelet Count 360 10^3/uL (150-450); Red Blood Count 2.74 10^6 /uL (3.70-4.87); Red Cell Distribution Width 19 % (10.5-15); White Blood Count 10.3 10^3/uL (3.5-10.8)
[2019-02-12] MEDS: Enoxaparin(*) 30 MG/0.3 ML SYR SUBCUT SCH (19:27)
[2019-02-13] MEDS: Lactated Ringers 1000 ML Bag* 1,000 ML IV SCH ×2 (02:34→20:59)
[2019-02-13 06:17] LABS: ABS Basophils 0 10^3/ul (0-0.2); ABS Eosinophils 0.1 10^3/ul (0-0.6); ABS Monocytes 1.4 10^3/ul (0-0.8); ABS Nucleated RBC 0 10^3/ul; Eosinophil % 1.2 %; Hematocrit 25 % (33-41); Hemoglobin 8.5 g/dL (12.0-16.0); Lymphocyte % 20.8 %; Mean Corpuscular HGB Conc 34 g/dL (31-36); Mean Corpuscular Hemoglobin 30 pg (27-31); Mean Corpuscular Volume 89 fL (80-97); Mean Platelet Volume 8.6 fL (7.4-10.4); Nucleated Red Blood Cells % 0; Platelet Count 385 10^3/uL (150-450); Red Blood Count 2.84 10^6 /uL (3.70-4.87); Red Cell Distribution Width 19 % (10.5-15); White Blood Count 9.5 10^3/uL (3.5-10.8)
[2019-02-13 06:33] LABS: Albumin 2.5 g/dL (3.2-5.2); Albumin/Globulin Ratio 0.7 (1-3); BUN/Creatinine Ratio 21.9 (8-20); Calcium 7.7 mg/dL (8.6-10.3); EGFR African American 39.8 (>60); EGFR Non-African American 32.9 (>60); Globulin 3.4 g/dL (2-4); Magnesium 2.1 mg/dL (1.9-2.7); Phosphorus 1.8 mg/dL (2.5-5.0); Potassium 3.1 mmol/L (3.5-5.0); Total Bilirubin 0.4 mg/dL (0.2-1.0); Total Protein 5.9 g/dL (6.4-8.9)
[2019-02-13] MEDS: Levothyroxine TAB* 75 MCG TAB PO SCH (06:42)
[2019-02-13] MEDS ORDERED: Potassium Phosphate IV* 15 MMOLE in NS 0.9% 250 ML* 250 ML IVPB ONE (09:18)
[2019-02-13] MEDS ORDERED: Potassium Chlor TAB* 10 MEQ TAB.ER PO STA (09:18)
[2019-02-13] MEDS: Pantoprazole TAB * 40 MG TAB PO SCH (10:07)
[2019-02-13] MEDS: predniSONE TAB* 5 MG PO SCH (10:08)
--- NOTE | 2019-02-13 15:46 | ECHO ---
Patient: EDDI DARLING [facility] Rec#: [id number] : 1935 Date: 02/13/2019 Age: 83y Height: 157 cm / 61.8 in Weight: 68 kg / 149.9 lbs Sex: F BSA: 1.69 Room#: 437 Admit Date#: 02/10/2019 Type: Inpatient Referring: MIRACLE TREVINO Reading: Aden Padilla MD Cellophane Tester: Abigail Gamboa RDCS CC: Herson Wade DO Transthoracic Echocardiogram Indication: TIA BP: 120/70 HR: 86 Rhythm: NSR Findings History: RA on immunosuppressants, recent right occipiatal hematoma, hypothyroidism, HLD. Technical Comments: The study quality is fair. Completed at 1515. Left Ventricle: The left ventricular chamber size is decreased. Moderate concentric left ventricular hypertrophy is observed. There is a prominent septal knuckle. Global left ventricular wall motion and contractility are within normal limits. There is normal left ventricular systolic function. The estimated ejection fraction is 60-65%. Abnormal left ventricular diastolic function is observed. There is an E to A reversal in the mitral valve flow pattern suggestive of diastolic dysfunction. Left Atrium: The left atrial chamber size is normal. Right Ventricle: Moderator Band present. The right ventricle is mildly dilated. The right ventricular global systolic function is low normal. Right Atrium: The right atrium is mildly dilated. Interatrial septum appears intact without evidence of shunting. The bubble study is negative. A patent foramen ovale is not demonstrated with color Doppler and agitated contrast. Aortic Valve: The aortic valve is trileaflet. Systolic excursion of the left coronary cusp is reduced. There is aortic annular calcification. There is trace to mild aortic regurgitation. There is borderline aortic stenosis present. The mean gradient of the aortic valve is 11 mmHg. The peak instantaneous gradient of the aortic valve is 22 mmHg. The aortic valve area, by peak velocities, is calculated at 2.2 cm2. The aortic valve area, by VTI's, is calculated at 2.1 cm2. There is LVOT obstruction. Mitral Valve: The mitral valve leaflets are mildly thickened. There is moderate mitral regurgitation. There is no evidence of mitral stenosis. Systolic anterior motion is visualized without left ventricular outflow tract obstruction. Tricuspid Valve: The tricuspid valve leaflets are mildly thickened. There is mild tricuspid regurgitation. The right ventricular systolic pressure is estimated at 26 mmHg. No pulmonary hypertension is noted. There is no tricuspid stenosis. Pulmonic Valve: The pulmonic valve appears normal. There is a trace pulmonic regurgitation. There is no pulmonic stenosis. Pericardium: There is no significant pericardial effusion. Aorta: There is mild dilatation of the ascending aorta. There is no dilatation of the aortic arch. There is mild dilatation of the aortic root. Pulmonary Artery: The main pulmonary artery is not well visualized. Venous: The inferior vena cava appears normal in size. There is a greater than 50% respiratory change in the inferior vena cava dimension. Contrast: Normal saline was used as contrast for the bubble study. Images 88 and 89. Intravenous contrast was used to help determine presence of intracardiac shunting. Summary: There was not any prior study for comparison. Conclusions Moderate concentric left ventricular hypertrophy is observed. There is a prominent septal knuckle. Global left ventricular wall motion and contractility are within normal limits. There is normal left ventricular systolic function. The estimated ejection fraction is 60-65%. The right ventricular global systolic function is low normal. A patent foramen ovale is not demonstrated with color Doppler and agitated contrast. There is aortic annular calcification. There is borderline aortic stenosis present. The mean gradient of the aortic valve is 11 mmHg. There is trace to mild aortic regurgitation. The mitral valve leaflets are mildly thickened. There is moderate mitral regurgitation. Systolic anterior motion is visualized without left ventricular outflow tract obstruction. There is mild tricuspid regurgitation. No pulmonary hypertension is noted. There is no significant pericardial effusion. Measurements Name Value Normal Range RVIDd (AP) 2D 2.6 cm (0.9 - 2.6) RVDdMajor (2D) 4.5 cm (2.2 - 4.4) RAd ISD 4CH 5.1 cm (3.4 - 4.9) RA (A4C)W 3.7 cm (2.9 - 4.6) IVSd (2D) 1.3 cm (0.6 - 1) LVPWd (2D) 1.3 cm (0.6 - 1) LVIDd (2D) 2.7 cm (3.6 - 5.4) LVIDs (2D) 1.7 cm - LV FS (2D) 37 % (25 - 45) Aortic Annulus 1.9 cm (1.4 - 2.6) Ao root diameter (2D) 3.6 cm (2.1 - 3.5) Ascending Ao 3.8 cm (2.1 - 3.4) Aortic arch 2.9 cm (1.8 - 3.4) LA dimension (AP) 2D 3.4 cm (2.3 - 3.8) LAd ISD 4CH 4.7 cm (2.9 - 5.3) LA ISD 4CH W 4.8 cm (2.5 - 4.5) Name Value Normal Range LA ESV BP (A/L) index 26 ml/m2 - Name Value Normal Range MV E-wave Vmax 0.7 m/sec - MV deceleration time 218 msec - MV A-wave Vmax 1 m/sec - MV E:A ratio 0.7 ratio - LV septal e' Vmax 0.03 m/sec - LV lateral e' Vmax 0.04 m/sec - LV E:e' septal ratio 23.3 ratio - LV E:e' lateral ratio 17.5 ratio - Name Value Normal Range AV Vmax 2.4 m/sec - AV VTI 46 cm - AV peak gradient 22 mmHg - AV mean gradient 11 mmHg - LVOT diameter 2 cm - LVOT Vmax 1.7 m/sec - LVOT VTI 31 cm - LVOT peak gradient 12 mmHg - LVOT mean gradient 6 mmHg - DOI (VTI) 0.67 ratio - ARIEL (continuity Vmax) 2.2 cm2 - ARIEL (continuity VTI) 2.1 cm2 - ARMANI Vmax 0.7 m/sec - Name Value Normal Range MR Vmax 5.4 m/sec - MR VTI 149 cm - MR flow (PISA) 67.1 ml/sec - MR ERO 0.13 cm2 - MR PISA radius 0.6 cm - MR alias Vmax 29.7 cm/sec - Name Value Normal Range TR Vmax 2.4 m/sec - TR peak gradient 23 mmHg - RAP 3 mmHg - RVSP 26 mmHg - IVC diameter 1.3 cm - Name Value Normal Range PV Vmax 1.1 m/sec - PV peak gradient 5 mmHg -
[2019-02-13] MEDS: Atorvastatin* 40 MG TAB PO SCH (16:10)
--- NOTE | 2019-02-13 16:43 | PN ---
Subjective Date of Service: 02/13/19 Interval History: Pt seen and examined. Meds and labs reviewed. CC: N/A ROS: Denied MCCLENDON/dizziness, F/C, N/V, CP, SOB, increased cough, sputum production , abd pain, diarrhea, constipation, dysuria, myalgias, arthralgias, throat pain , and new skin lesions. The rest of the 14 point ROS are unremarkable. PHYSICAL EXAM: GEN APPEARANCE: Awake, not in acute distress HEENT: NC/AT, PERRLA, moist oral mucosa, (-) throat erythema NECK: Soft, supple, (-) cervical LAD, (-)JVD HEART: S1S2 WNL, RRR, No MRG CHEST: CTA, BL, GAE, No W/R/R ABD: Soft, ND/NT, NABS 4x Q (+)colostomy EXT: No C/C/E SKIN: Warm to touch PSYCH: No active psychosis, hallucinations, depression, SI/HI Objective Active Medications: Acetaminophen (Tylenol Tab*) 650 mg PO Q6H PRN PRN Reason: FEVER/PAIN Last Admin: 02/11/19 20:14 Dose: 650 mg Al Hydrox/Mg Hydrox/Simethicone (Maalox Plus*) 30 ml PO Q4H PRN PRN Reason: INDIGESTION Atorvastatin Calcium (Lipitor*) 40 mg PO 1700 [facility] Last Admin: 02/13/19 16:10 Dose: 40 mg Enoxaparin Sodium (Lovenox(*)) 30 mg SUBCUT Q24H [facility] Last Admin: 02/12/19 19:27 Dose: 30 mg Lactated Ringer's (Lactated Ringers 1000 Ml Bag*) 1,000 mls @ 200 mls/hr IV PER RATE [facility] Last Admin: 02/13/19 02:34 Dose: 200 mls/hr Levothyroxine Sodium (Synthroid Tab*) 75 mcg PO DAILY@0600 [facility] Last Admin: 02/13/19 06:42 Dose: Not Given Ondansetron HCl (Zofran Inj*) 4 mg IV Q6H PRN PRN Reason: NAUSEA Pantoprazole Sodium (Protonix Tab*) 40 mg PO DAILY [facility] Last Admin: 02/13/19 10:07 Dose: 40 mg Prednisone (Deltasone Tab*) 5 mg PO DAILY [facility] Last Admin: 02/13/19 10:08 Dose: 5 mg Vital Signs - 8 hr 02/13/19 02/13/19 02/13/19 08:44 12:19 15:11 Temperature 98.4 F 98.2 F 97.3 F Pulse Rate 83 80 91 Respiratory 20 16 16 Rate Blood Pressure 116/67 126/72 126/69 (mmHg) O2 Sat by Pulse 100 100 100 Oximetry 02/13/19 16:00 Temperature 97.3 F Pulse Rate 91 Respiratory 16 Rate Blood Pressure 126/69 (mmHg) O2 Sat by Pulse 100 Oximetry Oxygen Devices in Use Now: None Result Diagrams: 02/13/19 05:32 02/13/19 05:32 Assess/Plan/Problems-Billing Assessment: 83W with rheumatoid arthritis on steroids and biologic, frequent UTIs, recent fall c/b hemothorax now s/p rehab stay, CKD, presents with AMS. She is a direct admit from [place] after presentation there for AMS with facial droop. Found here without facial droop but with anemia, metabolic acidosis (possibly from several liters of NS given at outside hospital), and acute on chronic renal insufficiency. MRI without acute findings, but with abdominal CT concerning for pancreatitis and obstructing renal stones. - Patient Problems (1) Acute on chronic renal failure Current Visit: Yes Status: Acute Code(s): N17.9 - ACUTE KIDNEY FAILURE, UNSPECIFIED; N18.9 - CHRONIC KIDNEY DISEASE, UNSPECIFIED SNOMED Code(s): 370070733 Comment: - Found with obstructing renal stones, Right causing R. hydronephrosis S/P Cystoscopy w/righ ureteroscopy, laser lithotripsy of distal R. ureteral calculi and R. retrograde pyelography and placement of R. ureteral stent, POD #2 (02/11) -Continue LR -UCx at [place] negative -Concern for multiple myeloma given elevated globulin, multiple fractures, and impaired renal function. - monitor UOP, BMP - renally dose meds, avoid nephrotoxic medications - f/u SPEP/UPEP (2) Anemia Current Visit: Yes Status: Acute Code(s): D64.9 - ANEMIA, UNSPECIFIED SNOMED Code(s): 631060597 Comment: -Stable -Repeat CBC was found reassuring yesterday (3) Metabolic acidosis Current Visit: Yes Status: Acute Code(s): E87.2 - ACIDOSIS SNOMED Code(s) : 87645389 Comment: -Hyperchloremic without an anion gap. Pt received significant IVF recusitation with normal saline at outside hospital - switched to LR. -Continues to improve -UAG (+) 14.6; RTA type I and IV possible -Continue LR (4) Pancreatitis Current Visit: Yes Status: Acute Code(s): K85.90 - ACUTE PANCREATITIS WITHOUT NECROSIS OR INFECTION, UNSP SNOMED Code(s): 07360138 Comment: -On CT, with lipase over 3,000. Unclear etiology. No e/o obstructing biliary stones. Not recently on known causitive medications (except for aspirin - no other signs of toxicity from this). Triglicerides 99. -CA 19-9 pending; left message at endoscopy for Dr. Sagastume---will await further input; called at 1630 but no one answered; will F/U tomorrow -Improved -Continue low residue, low fat diet - monitor abdominal and volume exam, Is & Os - APAP for pain - denying currently (5) Altered mental status Current Visit: Yes Status: Acute Code(s): R41.82 - ALTERED MENTAL STATUS, UNSPECIFIED SNOMED Code(s): 893944858 Comment: -Likely metabolic encephalopathy from multiple acute medical problems. MRI unrevealing. - Neuro consulted---D/C DAPT - correcting underlying medical issues as above - continue to monitor mental status - redirect, minimize interruptions/interventions, keep near window (6) Rheumatoid arthritis Current Visit: Yes Status: Acute Code(s): M06.9 - RHEUMATOID ARTHRITIS, UNSPECIFIED SNOMED Code(s): 82339751 Comment: holding home DMARD. - cont on home prednisone at a lower dose 5 mg (may have been on 7.5 before?) (7) DVT prophylaxis Current Visit: Yes Status: Acute Code(s): JHW9281 - SNOMED Code(s): 474294161 Comment: -Continue Lovenox SQ Status and Disposition: -D/C home with home PT when ready -Possible D/C in AM; to touch base with GI on D/C
--- NOTE | 2019-02-13 16:57 | CONS ---
CC: Dr. Maciel * CONSULTATION REPORT: DATE OF CONSULT: 02/13/19 REQUESTING PHYSICIAN: Dr. Maciel. INDICATION: Question of pancreatitis. NARRATIVE: Ms. Vasquez is a very pleasant but unfortunate 83-year-old female. 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 Approximately a month ago, she had a fall, had multiple fractures, was transferred to [facility] for a chest tube and then back to rehab at [facility]. She was transferred to [facility] on 02/10/19 with altered mental status for the past month and worsening renal function. She did have a CT abdomen and pelvis on 02/10/19, which showed extensive infiltration of the fat in the right upper quadrant surrounding the pancreatic head and neck and duodenum with abnormal soft tissue fullness. The margins of the duodenum and pancreas are obscured. Additional moderate infiltrative changes in the fat surrounding the pancreatic tail. Some of this appearance may be related to pancreatitis and inflammation of the adjacent duodenum, underlying malignancy cannot be excluded. Of note, she did have a CT abdomen and pelvis on 01/20/19 at [facility], which did not mention anything about pancreatitis, pancreatic masses, but numerous abdominal herniations. She did have an amylase and lipase checked here when she was first admitted and her lipase was [id number]. The patient has been on multiple antibiotics over the past few weeks. In interviewing her, she denies any abdominal pain. She states that she does have very rare and occasional burning in her right upper quadrant, but none now. She states that she is eating food without any pain at all. She currently denies any pain and did have what she calls good lunch. She denies any history of pancreatitis in the past. She denies any family history of pancreatitis in the past. PAST MEDICAL HISTORY: Please see the HPI. Additionally, she has history of shingles. PAST SURGICAL HISTORY: Please see the HPI, also includes a chest tube. MEDICATIONS UPON ADMISSION: Include: 1. Gabapentin. 2. Etanercept. 3. Famvir. 4. Prednisone. 5. Tramadol. 6. Pravastatin. 7. Synthroid. ALLERGIES: To PENICILLINS, BACTRIM, CIPRO, CODEINE. FAMILY HISTORY: No pancreatitis in the family. SOCIAL HISTORY: Rarely drinks alcohol. No tobacco. REVIEW OF SYSTEMS: Twelve systems were reviewed and other than that mentioned in the HPI were unremarkable. PHYSICAL EXAM: Temperature is 97.3, blood pressure is 126/69, pulse is 91, respiratory rate of 16. General: Elderly appearing female, sitting up in bed, pleasant, cooperative, alert, oriented, and fluent. Denies any pain. HEENT: Mucous membranes are moist without lesions, ulcers, or exudate. Dentition is poor. Neck is supple. Trachea is midline. Head is normocephalic, atraumatic. Heart: Regular rate and rhythm. Lungs: Clear to auscultation. Abdomen: Positive bowel sounds. Soft, nontender, nondistended. No hepatosplenomegaly, masses, rebound, or guarding. Skin is warm and dry. LABORATORY DATA: Labs of note, white count is 9.5, hemoglobin is 8.5, platelets of 385. Chemistry shows BUN of 33, creatinine is 1.15. Amylase is 166 , lipase is 294, both of those are improved. ASSESSMENT AND PLAN: This is a pleasant 83-year-old female with a CAT scan showing possible pancreatitis and elevated amylase and lipase; however, clinically the patient is doing great. She denies any abdominal pain. She is tolerating a regular diet. No clinical signs of pancreatitis. At this point, she seems to be doing very well. She denies any pain. She denies any clinical signs or symptoms of pancreatitis. Her amylase and lipase are improving. I would recommend that we continue treating the patient. Not lab values or abnormal CT, she really does not have any good reason to have pancreatitis other than possibly medication effect, ischemia. I think at this point I would repeat her amylase and lipase tomorrow. If they continue to improve, I do not think we need to do anything more; however, we will continue to follow along. The patient and her are both in agreement and understanding of this plan of action. [id number]/[facility] #: [id number] [place]
[2019-02-13] MEDS: Enoxaparin(*) 30 MG/0.3 ML SYR SUBCUT SCH (19:21)
[2019-02-13] MEDS: Acetaminophen TAB* 325 MG PO PRN (21:03)
[2019-02-14] MEDS: Lactated Ringers 1000 ML Bag* 1,000 ML IV SCH (03:14)
[2019-02-14] MEDS: Levothyroxine TAB* 75 MCG TAB PO SCH (05:52)
[2019-02-14] MEDS: predniSONE TAB* 5 MG PO SCH (10:08)
[2019-02-14] MEDS: Pantoprazole TAB * 40 MG TAB PO SCH (10:08)
[2019-02-14] MEDS ORDERED: Potassium Chloride LIQUID* 20 MEQ PACKET PO STA (10:42)
[2019-02-14] MEDS ORDERED: Potassium Phosphate IV* 15 MMOLE in NS 0.9% 250 ML* 250 ML IVPB ONE (11:30)
[2019-02-14 12:27] LABS: ABS Basophils 0 10^3/ul (0-0.2); ABS Eosinophils 0.1 10^3/ul (0-0.6); ABS Lymphocytes 1.4 10^3/ul (1.0-4.8); ABS Monocytes 1.3 10^3/ul (0-0.8); ABS Neutrophils 6.2 10^3/ul (1.5-7.7); ABS Nucleated RBC 0 10^3/ul; Eosinophil % 1.6 %; Hematocrit 25 % (33-41); Hemoglobin 8.2 g/dL (12.0-16.0); Lymphocyte % 15.8 %; Mean Corpuscular HGB Conc 33 g/dL (31-36); Mean Corpuscular Hemoglobin 29 pg (27-31); Mean Corpuscular Volume 89 fL (80-97); Mean Platelet Volume 8.6 fL (7.4-10.4); Nucleated Red Blood Cells % 0.1; Platelet Count 368 10^3/uL (150-450); Red Cell Distribution Width 19 % (10.5-15); White Blood Count 9.1 10^3/uL (3.5-10.8)
[2019-02-14 12:44] LABS: Albumin 2.7 g/dL (3.2-5.2); Albumin/Globulin Ratio 0.8 (1-3); BUN/Creatinine Ratio 22.6 (8-20); Calcium 7.4 mg/dL (8.6-10.3); EGFR African American 46.1 (>60); EGFR Non-African American 38.1 (>60); Globulin 3.6 g/dL (2-4); Potassium 3.6 mmol/L (3.5-5.0); Total Bilirubin 0.3 mg/dL (0.2-1.0); Total Protein 6.3 g/dL (6.4-8.9)
[2019-02-14 15:38] LABS: Albumin 2.6 g/dL (3.4-4.7); Albumin/Globulin Ratio 0.63; Gamma Globulin 2.2 g/dL (0.6-1.6); Total Protein(PEP) 6.8 g/dL (6.3 - 7.9)
[2019-02-14 16:10] VITALS: BP 110/66
--- NOTE | 2019-02-14 23:08 | DS ---
CC: Dr. Teetee Wilson; Dr. Sofiya Mccoy; Dr. Naeem Krishnamurthy; Dr. Jonathan Sagastume * DISCHARGE SUMMARY: DATE OF ADMISSION: DATE OF DISCHARGE: 02/14/19 DISCHARGE CONDITION: Stable. DISCHARGE DISPOSITION: Home/discharged home with home PT/services. DISCHARGE DIAGNOSES: 1. Acute on chronic renal failure due to hydronephrosis secondary to right ureteral calculi, status post cystoscopy with right ureteroscopy, laser lithotripsy of distal right ureteral calculi and right retrograde pyelography, and placement of right ureteral stent. 2. Anemia. 3. Hyperchloremic metabolic acidosis, improved, likely due to above in the setting of aggressive IV resuscitation. 4. Elevated pancreatic enzymes/possible pancreatitis, improved; the patient has not complained of abdominal pain. 5. Altered mental status, resolved, likely due to metabolic encephalopathy, due to above. DISCHARGE MEDICATIONS: 1. Tylenol 650 mg p.o. q.6 p.r.n. 2. Calcium carbonate plus D supplementation. 3. Folic acid supplementation daily. 4. Gabapentin 100 mg p.o. t.i.d. 5. Levothyroxine 75 mcg p.o. daily. 6. Mirtazapine 7.5 mg p.o. q.h.s. 7. Omeprazole 20 mg p.o. daily. 8. Pravastatin 40 mg p.o. q.h.s. 9. Prednisone 7.5 mg p.o. daily. HISTORY OF PRESENT ILLNESS/HOSPITAL COURSE: The patient is an 83-year-old lady with history of rheumatoid arthritis, bowel perforation, status post resection and colostomy, and frequent UTIs, who, 1 month ago, was believed to have had a mechanical fall, but was unwitnessed by her . She was then taken to [facility] where she was diagnosed with hemopneumothorax and then subsequently transferred to [facility] for chest tube placement , which was completed, with resolution of the said hemopneumothorax. She was then transferred back to [facility] for rehab and was then discharged home. Two days later, she began having some urinary frequency and having to go to the bathroom every 30 minutes without any dysuria. However, the patient at that time was a poor historian. She also presented with intermittent burning abdominal pain, which was otherwise responsive to Pepto-Bismol. Subsequent analysis suggested that she has an acute on chronic renal failure, likely due to the right ureteral calculi seen on abdominal and pelvic CT done on 02/10/19. Dr. Krishnamurthy then took the patient to the operating room and subsequently performed a cystoscopy with right ureteroscopy, laser lithotripsy of distal right ureteral calculi, and right retrograde pyelography and placement of right ureteral stent. She has done well postop and her leukocytosis has resolved. She was found to have non-anion gap hyperchloremic metabolic acidosis due to the aggressive fluid resuscitation she had received along with possible acute on chronic renal failure on presentation. Her metabolic acidosis is noted to almost be normal and has improved significantly. I have also touched base with Dr. Krishnamurthy prior to the patient being discharged and we will discontinue Aranda. She also likely had pancreatitis on presentation given her pancreatic enzymes were elevated, however, her abdominal discomfort or pain only lasted a day or so and was not a prominent part of her presentation. Due to concerns for possible unrecognized pancreatic mass obscured by inflammation, GI was consulted and CA 19-9 was drawn. Per GI, continue watchful waiting and no other recommendations made. CA19-9 still pending at the time of discharge. She has been advised to follow up and call her PCP within 3 days post discharge. She was advised that if her symptoms resume or develop new ones or feel unwell for any reason, to call her PCP first. If her PCP cannot entertain her due to scheduling issues alone, she was advised to call [facility] if the issue is nonemergent. She was advised to call my office regarding questions, concerns or further clarifications regarding her discharge plans and her prescription and to take her medications as prescribed. REVIEW OF SYSTEMS: The patient denied any recent headaches, dizziness, fever, chills, nausea, vomiting, chest pain, shortness of breath, increased cough and/ or sputum production, abdominal pain, diarrhea, constipation, pain and/or increased frequency on urination, myalgias, arthralgias, throat pain or new skin lesions. The rest of the 14-point review of systems are otherwise unremarkable. PHYSICAL EXAMINATION: Shows the most recent vital signs of records with blood pressure of 117/66, temperature 98.6 degrees Fahrenheit, 94 beats per minute heart rate, 17 per minute respiratory rate, saturating at 100% on room air. General Appearance: The patient is awake, not in acute distress. HEENT: Normocephalic, atraumatic. PERRLA. Extraocular muscles are intact. Negative for icterus. Moist oral mucosa. Negative throat erythema. Neck is soft, supple, with no cervical lymphadenopathy. No JVD. Heart: S1 and S2, within normal limits. Regular rate and rhythm. No murmurs, rubs, or gallops. Chest: Clear to auscultation bilaterally. Good air entry. No wheezes, rales, or rhonchi. Abdomen: Soft, nondistended, nontender. Normoactive bowel sounds x4 quadrants. Extremities: No cyanosis, clubbing, or edema. Psychiatric: No active psychosis, depression, suicidal or homicidal ideations. Skin is warm to touch. TIME SPENT: The total time spent evaluating the patient, reviewing pertinent data, and appropriate documentation was 1 hour and 10 minutes. [id number]/CPS #: [id number] MTDD
== END 2019-02-14 17:00 | disposition home or self-care (01) | DRG 659 ==
LOC: MEDTELE 16:44
PROVIDERS: ADMIT Internal Medicine; ATTEND Student in an Organized Health Care Education/Training Program
PROC: 0TC68ZZ Extirpation of Matter from Right Ureter, Via Natural or Artificial Opening Endoscopic (ICD-10-PCS; 2019-02-11)
PROC: BT1DZZZ Fluoroscopy of Right Kidney, Ureter and Bladder (ICD-10-PCS; 2019-02-11)
PROC: 0T768DZ Dilation of Right Ureter with Intraluminal Device, Via Natural or Artificial Opening Endoscopic (ICD-10-PCS; principal; 2019-02-11 10:30)
DX: N13.2 Hydronephrosis with renal and ureteral calculous obstruction (principal); G93.41 Metabolic encephalopathy; K85.90 Acute pancreatitis without necrosis or infection, unspecified; K56.609 Unspecified intestinal obstruction, unspecified as to partial versus complete obstruction; E87.2 Acidosis; N18.9 Chronic kidney disease, unspecified; E03.9 Hypothyroidism, unspecified; Z66 Do not resuscitate; E86.0 Dehydration; N17.9 Acute kidney failure, unspecified; M06.9 Rheumatoid arthritis, unspecified; R29.810 Facial weakness; D64.9 Anemia, unspecified; Z93.3 Colostomy status; Z87.440 Personal history of urinary (tract) infections; Z91.81 History of falling; Z88.1 Allergy status to other antibiotic agents; Z88.5 Allergy status to narcotic agent; Z88.0 Allergy status to penicillin; Z88.8 Allergy status to other drugs, medicaments and biological substances; Z72.89 Other problems related to lifestyle; Z79.52 Long term (current) use of systemic steroids
CPT/HCPCS: 36415; 36600; 70551; 74176; 74420; 80048; 80053; 80061; 80329; 82150; 82365; 82436; 82570; 82803; 83036; 83605; 83690; 83735; 83986; 84100; 84133; 84155; 84156; 84165; 84166; 84300; 85025; 85652; 86140; 86301; 88300; 93005; 93306; A9270-GY; C1876; G0480; G8978-GP-CJ; G8979-GP-CI; G8987-GO-CI; G8988-GO-CI; G8989-GO-CI; J1100; J1650; J2405; J3475; J7512